=== PATIENT | male | born 1970 | race Caucasian/White ===

== ENCOUNTER 2018-06-04 12:10 | Day surgery (SDC) | payer OTHER, SELFPAY ==
[2018-05-21 08:55] VITALS: BMI 35.2
[2018-06-04] VITALS (12 sets, daily range): BP systolic 137–167; BP diastolic 67–106; PULSE 65–79; RESP 12–20; TEMP 36.2–37.1; O2SAT 68–98; BMI 34.6
[2018-06-04] MEDS: LACTATED RINGERS 1,000 ML 100 ML IV (12:46)
--- NOTE | 2018-06-04 13:23 | PM.PREOP ---
Pre-operative Note Interval Note Pre-op Check: Yes History & Physical Reviewed by Physician and Yes Exam Performed Changes: No
[2018-06-04] MEDS: CEFAZOLIN 2 GM/100 ML FROZ.PIGGY IV (13:24)
--- NOTE | 2018-06-04 13:39 | SUR.OPER ---
Supine on padded OR bed, head on pillow, arms secured on padded arm boards at <90 degrees abduction, legs uncrossed, safety belt at thigh, tape over blanket over lower legs.
[2018-06-04] MEDS: BUPIVACAINE 0.5% (PF) VIAL 30 ML INJ (13:50)
[2018-06-04] MEDS: LACTATED RINGERS 1,000 ML 42 ML IV (14:23)
--- NOTE | 2018-06-04 14:40 | PM.OP.1 ---
Operative Date/Time/Diagnoses Date of procedure: 06/04/18 Time of procedure: 14:40 Pre-op diagnosis: Umbilical hernia recurrent Post-op diagnosis: other (Ventral hernia reducible) Procedure & Clinicians Procedure: Repair of ventral hernia with underlay of mesh Same procedure as scheduled: Yes Indications: Symptomatic hernia which turned out to be above the prior umbilical hernia repair Surgeon: Fernandez Bains Click Yes if Unassisted: Yes Anesthesia Type: General Operative Notes Findings: Preperitoneal fat containing ventral hernia Closure Type: primary Specimen(s): none sent Implants & Drains: 2.5 in diameter circular Atrium mesh Estimated Blood Loss (mL): 15 Procedure in detail: The patient was placed supine on the operating room table and underwent general LMA anesthesia. He was prepped and draped in the usual fashion. The hernia actually was above the umbilicus once he was asleep. This became apparent. I made an incision vertically above the umbilicus and carried it down to the level the hernia sac. Sac was from surrounding structures the fascial edge was identified and the sac incised at this level and removed. The preperitoneal fat was dissected from the underside of the abdominal wall circumferentially. A 2 and 0.5 in circular piece of mesh was then sutured into place with U-stitches of 0 Tycron going down through muscle wall and then through the mesh and back up through mesh in up the muscle wall. This was done circumferentially. The mesh was then placed under the fascia and these were tied. The actual fascial defect was then closed superior to inferior with figure 8 0 Tycron sutures incorporating the 2 flaps of the mesh into the closure. The repair appeared to be adequate without tension. The subcu was reapproximated with 3 0 Vicryl. The skin was closed with a 4 0 Vicryl subcuticular stitch and Steri-Strips. Dressing was applied the patient was awakened extubated taken recovery area in good condition Complications: none Condition: stable Disposition: PACU Plan for aftercare: Follow-up in the office in 10-14 days
[2018-06-04] MEDS: fentaNYL 100 MCG/2 ML INJ 50 MCG IV ×2 (14:55→15:00)
[2018-06-04] MEDS: HYDROMORPHONE 2 MG INJ 0.5 MG IV ×8 (15:25→16:00)
[2018-06-04] MEDS: HYDROCODONE/ACET 5/325 TABLET 1 TAB PO (16:05)
[2018-06-04] MEDS: LORazepam 2 MG/ML SYRINGE 1 MG IV (16:30)
--- NOTE | 2018-06-04 16:51 | SUR.PHASEII ---
pt struggled with restlessness and diaphoresis for entire recovery period. spoke with Dr flores and ordered to give lorazepam iv with excellent results
== END 2018-06-04 16:50 | disposition home or self-care (01) ==
PROVIDERS: PCP Family Medicine Geriatric Medicine; Visit Provider Specialist
PROC: (CPT 49565; principal; 2018-06-04 13:15)
DX: K42.9 Umbilical hernia without obstruction or gangrene (principal); F17.210 Nicotine dependence, cigarettes, uncomplicated; E66.9 Obesity, unspecified
CPT/HCPCS: 49565; 49568; C1781; J0690; J1100; J1170; J2060; J2405; J2704; J3010